=== PATIENT | male | born 1970 | race Caucasian/White ===

== ENCOUNTER → 2016-11-24 | Outpatient (CLI) | payer OTHER ==
--- NOTE | 2016-11-24 10:23 | RADIOLOGY REPORT PS360 ---
US RUQ-(ABD LTD)1ORGAN/QUAD/FU HISTORY: ELEVATED LIVER ENZYMES ORDERING PHYSICIAN: Sandee CARL PATIENT AGE: 46 years COMPARISON: None FINDINGS: PANCREAS:Unremarkable. No obvious mass or abnormal fluid collection. No ductal dilatation LIVER:No focal liver lesions demonstrated. Increased echogenicity of the liver with poor through transmission of sound consistent with hepatic steatosis. No intrahepatic biliary ductal dilatation evident RIGHT KIDNEY:Unremarkable. Normal size and echogenicity. No hydronephrosis GALLBLADDER:No gallstones, gallbladder wall thickening, pericholecystic fluid, or biliary dilatation. The liver echoes are present in the gallbladder consistent with sludge. IMPRESSION: 1. Hepatic steatosis. 2. Gallbladder sludge. No shadowing stones evident.
== END ==
LOC: RAD 11-14 08:00
DX: R74.8 Abnormal levels of other serum enzymes (principal)